=== PATIENT | male | born 1980 | race Caucasian/White ===

== ENCOUNTER 2016-10-19 14:02 | Emergency (ER) | payer SELFPAY ==
[~2016-10-19] VITALS: Ht 182.9 cm; Wt 104.3 kg
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
== END 2016-10-19 17:16 | disposition home or self-care (01) ==
LOC: CED 14:02
DX: S16.1XXA Strain of muscle, fascia and tendon at neck level, initial encounter (principal); V43.92XA Unspecified car occupant injured in collision with other type car in traffic accident, initial encounter
CPT/HCPCS: 70450; 72072; 72100; 72125; 99284